=== PATIENT | female | born 1975 | race Hispanic/Latino ===

== ENCOUNTER 2017-10-28 15:42 | Observation (INO) | payer OTHER ==
[2017-10-28] VITALS (19 sets, daily range): BP systolic 100–137; BP diastolic 50–85
[~2017-10-28] VITALS: Ht 162.6 cm; Wt 78.0 kg
[2017-10-28] MEDS ORDERED: LIDOCAINE PF 2% 5ML ABBOJECT ONE (16:14)
[2017-10-28] MEDS ORDERED: GLYCOPYRROLATE 0.2 MG/ML 5 ML VIAL ONE (16:14)
[2017-10-28] MEDS ORDERED: SUCCINYLCHOLINE 200MG/10ML SYR ONE ×2 (16:14→17:40)
[2017-10-28] MEDS ORDERED: MIDAZOLAM HCL 1 MG/ML 2ML VIAL ONE (16:14)
[2017-10-28] MEDS ORDERED: DEXAMETHASONE SOD PHOSPHATE 10MG/ML 1ML VIAL ONE ×2 (16:14→17:40)
[2017-10-28] MEDS ORDERED: PROPOFOL 10 MG/ML 20ML VIAL IV ONE (16:15)
[2017-10-28] MEDS ORDERED: FENTANYL CITRATE PF 50 MCG/1 ML 2ML VIAL ONE ×4 (16:15→18:30)
[2017-10-28] MEDS ORDERED: ROCURONIUM BROMIDE 10MG/1ML 5ML VL ONE ×2 (16:17→17:40)
[2017-10-28] MEDS ORDERED: PNV1TABL17 PO (16:20)
[2017-10-28 17:05] LABS: HEMATOCRIT 32.7 % (36-48); LYMPHOCYTES % (AUTO) 22.1 % (21.0-51.0); MEAN CORPUSCULAR HEMOGLOBIN 26.6 pg (27.0-33.0); MEAN CORPUSCULAR HGB CONC 33.3 g/dL (32.0-36.0); MEAN CORPUSCULAR VOLUME 79.9 fL (79-99); NEUTROPHILS % (AUTO) 66.9 % (40.0-77.0); PLATELET COUNT (AUTO) 238 K/uL (130-400); RED CELL DISTRIBUTION WIDTH 18.5 % (11.0-15.5); WHITE BLOOD COUNT (AUTO) 8.8 K/uL (4.8-10.8)
[2017-10-28] MEDS ORDERED: LIDOCAINE HCL 4% LTA SOL 4 ML VIAL ONE (17:31)
[2017-10-28] MEDS ORDERED: ONDANSETRON HCL MDV 20ML 2 MG/ML VIAL ONE (17:41)
[2017-10-28] MEDS ORDERED: MEPERIDINE-PF 25 MG/ML SYG ONE (18:17)
[2017-10-28] MEDS ORDERED: ACETAMINOPHEN-CODEINE 300/30MG TAB PO PRN (21:45)
[2017-10-28 22:37] LABS: HEMATOCRIT 34.2 % (36-48)
[2017-10-29 02:20] VITALS: BP 105/49
[2017-10-29 07:53] VITALS: BP 114/65
[2017-10-29] MEDS ORDERED: IBUPROFEN 800 MG TAB PO PRN (08:30)
== END 2017-10-29 10:50 | disposition home or self-care (01) ==
LOC: WSH 15:42
PROVIDERS: ADMIT Obstetrics & Gynecology; ATTEND Obstetrics & Gynecology
DX: O00.101 Right tubal pregnancy without intrauterine pregnancy (principal); O26.891 Other specified pregnancy related conditions, first trimester; R10.2 Pelvic and perineal pain; O09.511 Supervision of elderly primigravida, first trimester; Z3A.01 Less than 8 weeks gestation of pregnancy
CPT/HCPCS: 36415; 58661; 85014; 85018; 85025; 86850; 86900; 86901; A4215; A4351; A4510; A4606; A4649; A4930 ×2; C1769 ×3; G0378 ×20; J0330 ×2; J1100 ×2; J2001; J2175; J2250; J2704; J3010 ×4; J3490 ×3; J7120

== ENCOUNTER 2018-01-13 19:52 | Emergency (ER) | payer OTHER ==
[~2018-01-13 19:52] MED LIST: PNV1TABL17 PO
[2018-01-13 20:15] LABS: APPEARANCE,URINE Clear (CLEAR); BILIRUBIN,URINE Negative (NEGATIVE); COLOR,URINE Yellow (YELLOW); GLUCOSE, URINE (UA) Negative (NEGATIVE); KETONES,URINE Negative (NEGATIVE); LEUKOCYTE ESTERASE ,URINE Trace (NEGATIVE); NITRATE,URINE Negative (NEGATIVE); OCCULT BLOOD,URINE Negative (NEGATIVE); PH,URINE 5.5 (5.0-8.0); PROTEIN,URINE Negative (NEGATIVE); UROBILINOGEN,URINE 0.2 mg/dL (0.2-1.0)
[2018-01-13 20:20] LABS: BASOPHILS % (AUTO) 0.7 % (0.0-5.0); HEMATOCRIT 39.3 % (36-48); LYMPHOCYTES % (AUTO) 18.8 % (21.0-51.0); MEAN CORPUSCULAR HEMOGLOBIN 27.4 pg (27.0-33.0); MEAN CORPUSCULAR HGB CONC 33.8 g/dL (32.0-36.0); MONOCYTES % (AUTO) 6.6 % (3.0-13.0); NEUTROPHILS % (AUTO) 65.9 % (40.0-77.0); PLATELET COUNT (AUTO) 248 K/uL (130-400); RED BLOOD CELL COUNT(AUTO) 4.86 MIL/uL (4.00-5.50); RED CELL DISTRIBUTION WIDTH 16.4 % (11.0-15.5); WHITE BLOOD COUNT (AUTO) 12.8 K/uL (4.8-10.8)
[2018-01-13] MEDS ORDERED: SODIUM CHLORIDE 0.9% 1000ML 1,000 ML IV ONE (20:28)
[2018-01-13] MEDS ORDERED: ACETAMINOPHEN-CODEINE ELIXIR 5 ML UDCUP ONE (20:29)
[2018-01-13 20:30] LABS: CREATININE 0.8 mg/dL (0.5-1.5); POTASSIUM 3.8 mmol/L (3.5-5.1)
[2018-01-13 20:32] LABS: BACTERIA,URINE Rare /HPF (None Seen); RBC,URINE None Seen /HPF (0-1); WBC,URINE 0-1 /HPF (0-1)
[2018-01-13 20:35] LABS: BILIRUBIN,TOTAL 0.6 mg/dL (0.2-1.0)
[2018-01-13] MEDS ORDERED: IOPAMIDOL-370 75 ML VIAL IV ONE (20:56)
[2018-01-13] MEDS ORDERED: ZOSYN 3.375GM+NS 50ML 50 ML IV ONE (21:55)
== END 2018-01-13 23:25 | disposition home or self-care (01) ==
LOC: EDH 19:52
DX: K52.9 Noninfective gastroenteritis and colitis, unspecified (principal); Z98.890 Other specified postprocedural states
CPT/HCPCS: 36415; 74177; 80053; 81001; 81025; 85025; 96361; 96365; 99285; J2543; J7030; Q9967

== ENCOUNTER 2018-10-05 12:59 | Emergency (ER) | payer OTHER ==
[2018-10-05] MEDS ORDERED: SODIUM CHLORIDE 0.9% 1000ML 1,000 ML IV ONE (13:32)
[2018-10-05 13:38] LABS: BASOPHILS % (AUTO) 1.3 % (0.0-5.0); EOSINOPHILS % (AUTO) 9.3 % (0.0-8.0); HEMATOCRIT 37.1 % (36-48); LYMPHOCYTES % (AUTO) 20.7 % (21.0-51.0); MEAN CORPUSCULAR HEMOGLOBIN 28.3 pg (27.0-33.0); MEAN CORPUSCULAR HGB CONC 32.3 g/dL (32.0-36.0); MEAN CORPUSCULAR VOLUME 87.5 fL (79-99); MONOCYTES % (AUTO) 8.6 % (3.0-13.0); NEUTROPHILS % (AUTO) 60.1 % (40.0-77.0); PLATELET COUNT (AUTO) 212 K/uL (130-400); RED BLOOD CELL COUNT(AUTO) 4.24 MIL/uL (4.00-5.50); RED CELL DISTRIBUTION WIDTH 17.6 % (11.0-15.5); WHITE BLOOD COUNT (AUTO) 6.3 K/uL (4.8-10.8)
[2018-10-05 13:45] LABS: BILIRUBIN,URINE Negative (NEGATIVE); COLOR,URINE Yellow (YELLOW); GLUCOSE, URINE (UA) Negative (NEGATIVE); KETONES,URINE Negative (NEGATIVE); LEUKOCYTE ESTERASE ,URINE Negative (NEGATIVE); NITRATE,URINE Negative (NEGATIVE); OCCULT BLOOD,URINE Moderate (NEGATIVE); PH,URINE 5.5 (5.0-8.0); PROTEIN,URINE Negative (NEGATIVE); UROBILINOGEN,URINE 0.2 mg/dL (0.2-1.0)
[2018-10-05 13:47] LABS: CREATININE 0.7 mg/dL (0.5-1.5); POTASSIUM 3.7 mmol/L (3.5-5.1)
[2018-10-05 13:50] LABS: APPEARANCE,URINE CLEAR (CLEAR)
[2018-10-05 13:56] LABS: BACTERIA,URINE Rare /HPF (None Seen); SQUAMOUS EPITHELIAL CELL,UR Rare /HPF (0-2); WBC,URINE 0-1 /HPF (0-1)
== END 2018-10-05 15:04 | disposition home or self-care (01) ==
LOC: EDH 12:59
DX: O03.9 Complete or unspecified spontaneous abortion without complication (principal); Z87.891 Personal history of nicotine dependence; Z98.890 Other specified postprocedural states
CPT/HCPCS: 36415; 76817; 80048; 81001; 84702; 85025; 86900; 86901; 99284; J7030